=== PATIENT | male | born 1945 | race African-American/Black ===

== ENCOUNTER 2023-02-24 10:40 | Emergency (ER) | payer MEDICARE, OTHER ==
[~2023-02-24] VITALS: Ht 167.6 cm; Wt 66.0 kg
[2023-02-24 10:42] VITALS: BP 184/96; PULSE 78; RESP 18; TEMP 98.2; O2SAT 99
[2023-02-24 11:21] LABS: CHLORIDE 110 mEq/L (98-107)
[2023-02-24 11:30] LABS: BASOPHILS % 0.5 % (0.0-2.0); EOSINOPHILS % 3.3 % (0.0-5.0); HEMATOCRIT. 41.3 % (42.0-52.0); LYMPHOCYTES % 28.4 % (20.0-50.0); MEAN CORPUSCULAR HEMOGLOBIN 29.7 pg (28.0-32.0); MEAN PLATELET VOLUME 9.8 fl (7.4-10.4); NEUTROPHILS % 58.8 % (40.0-76.0); PLATELET 144 x1000/uL (130-400); RED CELL DISTRIBUTION WIDTH 15.6 % (11.6-14.6)
[2023-02-24 14:45] LABS: CLARITY URINE CLEAR (CLEAR); COLOR URINE YELLOW (YELLOW); KETONES URINE NEGATIVE (NEGATIVE); LEUKOCYTE ESTERASE URINE 1+ (NEGATIVE); NITRITE URINE NEGATIVE (NEGATIVE); OCCULT BLOOD URINE TRACE (NEGATIVE); PROTEIN URINE NEGATIVE (NEGATIVE); SPECIFIC GRAVITY URINE 1.014 (1.005-1.030); UROBILINOGEN URINE 0.2 E.U./dL (0.2-1.0)
[2023-02-24] MEDS: CEFTRIAXONE 1GM PREMIX 50 ML IV ONE (15:30)
[2023-02-24] MEDS ORDERED: CEPH500C2 MT (16:44)
== END 2023-02-24 17:12 | disposition home or self-care (01) ==
LOC: ER 10:40
DX: N30.90 Cystitis, unspecified without hematuria (principal); N40.0 Benign prostatic hyperplasia without lower urinary tract symptoms; I10 Essential (primary) hypertension
CPT/HCPCS: 99285; 74176; 96365; 80053; 81003; 85025; 36415; J0696